=== PATIENT | male | born 1985 | race African-American/Black ===

== ENCOUNTER 2017-07-23 14:12 | Emergency (ER) | payer OTHER ==
[2017-07-23] MEDS ORDERED: MORPHINE SULFATE 10 MG/ML INJ IV ONE (14:51)
[2017-07-23] MEDS ORDERED: LIDOCAINE 1% INJ-PF (10 MG/ML) 30 ML SDV INJ ONE (14:51)
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
[2017-07-23] MEDS ORDERED: LIDOCAINE 2%/EPINEPHRINE INJ 20 ML VIAL INJ ONE (16:03)
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
[2017-07-23] MEDS ORDERED: LIDOCAINE 1.5%/EPINEPHRINE INJ-PF 30 ML SDV INJ ONE (16:28)
[2017-07-23] MEDS ORDERED: HYDROMORPHONE HCL INJ/PF 2 MG/ML AMPULE IV ONE (16:28)
[2017-07-23] MEDS ORDERED: CYCLOBENZAPRINE HCL 10 MG TABLET PO ONE (18:39)
[2017-07-23] MEDS ORDERED: CLINDAMYCIN HCL 150 MG CAPSULE PO ONE (18:39)
[2017-07-23] MEDS ORDERED: HYDROCODONE/ACETAMINOPHEN 5-325 MG 6 TAB/DSPK PO PRN (18:39)
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
[2017-07-23 19:40] VITALS: BP 124/61
== END 2017-07-23 19:20 | disposition home or self-care (01) ==
LOC: ER 14:12
PROC: 0HQDXZZ Repair Right Lower Arm Skin, External Approach (ICD-10-PCS; principal; 2017-07-23)
PROC: 0HQBXZZ Repair Right Upper Arm Skin, External Approach (ICD-10-PCS; 2017-07-23)
DX: S41.111A Laceration without foreign body of right upper arm, initial encounter (principal); S51.811A Laceration without foreign body of right forearm, initial encounter; S09.90XA Unspecified injury of head, initial encounter; V68.6XXA Passenger in heavy transport vehicle injured in noncollision transport accident in traffic accident, initial encounter
CPT/HCPCS: 99284; 96374; 96375; 71020; 73090; 73060; 73030; 70450; 72125; 12002; L0120; J3490 ×2; J2270; J1170